=== PATIENT | female | born 1945 ===

== ENCOUNTER → 2020-12-22 | Outpatient (REF) | LOC: M LAB LCGH 10:22 | PROVIDERS: ATTEND Physician Assistant | DX: Z00.00 Encounter for general adult medical examination without abnormal findings (principal) ==

== ENCOUNTER → 2020-12-23 | Outpatient (REF) | LOC: M LAB LCGH 10:21 | PROVIDERS: ATTEND Physician Assistant | DX: Z00.00 Encounter for general adult medical examination without abnormal findings (principal) ==